=== PATIENT | male | born 1955 | race Caucasian/White ===

== ENCOUNTER 2024-04-06 19:51 | Emergency (ER) | payer BC, SELFPAY ==
--- NOTE | 2024-04-06 19:55 | XR_ITS ---
Examination: CT abdomen and pelvis without contrast. Coronal 3-D reconstructions. Sagittal 2-D reconstructions. Date and time of exam:April 06, 2024 2136 hrs. Comparison September 15, 2016 Indications: Blood in the nephrostomy tube noticed beginning 3 hours ago CTDI: vol (mGy): 10.41 DLP: (mGycm): 703 Technique: Axial images of the abdomen have been obtained, 3 mm slice thickness Intravenous contrast material has not been administered. Low dose protocols were performed. One or more of the following dose reduction techniques were used; automated exposure control, adjustment of the mA and/or KV according to patient size, use of iterative reconstruction technique. Findings: Atelectasis versus pneumonia right base Minimal right pleural fluid No visualized liver or splenic lesion, liver is irregular in contour Right nephrostomy tube satisfactory position, mild right hydronephrosis The lower portion of the ureteral stent extends to the lower pelvis with 6 mm calculus adjacent to the distal portion of the stent Urinary bladder is not identified No bowel obstruction No diverticulitis Impression: Nephrostomy tube is in satisfactory position There is blood in the right renal calyces and ureter with mild right hydronephrosis
--- NOTE | 2024-04-06 19:58 | EDNOTE_ITS ---
ED General RME/HPI General Chief complaint: General Adult/Misc Complain Stated complaint: NEPHROSTOMY TUBE ISSUES Time Seen by Provider: 04/06/24 19:52 Arrival date/time: 04/06/24 19:51 CC: Blood in nephrostomy tube bag and blood around nephrostomy tube in the back HPI patient took a tramadol, became nauseated and vomited several times after which the patient noticed there was bleeding from his nephrostomy tube site and there was blood draining into his nephrostomy tube bag. Patient is mildly nauseated but states no longer vomiting. No prior history of similar events. Patient states it was draining clear yellow urine up until approximately 2 hours ago when this occurred. Patient denies fever chills shortness of breath or difficulty breathing. Patient states nephrostomy tube was placed 2 days ago at [facility] in [facility]. Related Data Allergies Allergy/AdvReac Type Severity Reaction Status Date / Time NKA* Allergy Uncoded 09/15/16 11:29 ED Exam Narrative Physical exam: [General: Obese, mild discomfort acute distress Head normocephalic HEENT: Within acceptable limits Neck is supple nontender Chest equal chest rise nontender to palpation Respiratory: Clear to auscultation no wheezes crackles or rubs CV: Rate rhythm is regular no murmurs rubs or clicks Abdomen is distended secondary to body habitus soft nontender no masses positive bowel sounds all 4 quadrants Back: Right lower nephrostomy tube site bloody, but appears intact. No hematoma. No active bleeding. There is bright red blood draining into the Neuroth nephrostomy tube bag. No surrounding ecchymosis not warm to touch no erythema. No CVA tenderness no spinous process tenderness from cervical spine thoracic and lumbar spine Skin: Intact no petechiae rash induration ulceration or crepitus Extremities: Moving all extremity against resistance cap refill less than 2 seconds neurosensory intact Neuro: Awake alert oriented x3 Glascow coma 15 no focal deficits] Course Quality Measures none Orders Category Date Time Status CT abdomen pelvis wo con Stat Exams 04/06/24 19:55 Completed CBC Stat Lab 04/06/24 20:41 Completed CMP [Comprehensive Metabolic Panel] Stat Lab 04/06/24 20:41 Completed Vital Signs Vital signs: Vital Signs Temperature 98.6 F 04/06/24 19:59 Pulse Rate 99 04/06/24 19:59 Respiratory Rate 18 04/06/24 19:59 Blood Pressure 146/79 H 04/06/24 19:59 Pulse Oximetry (%) 99 04/06/24 19:59 Oxygen Delivery Method Room Air 04/06/24 19:59 [facility] Patient data External records reviewed:: [facility] previous records and EMS form Clinical information provided by:: patient and EMS Social determinants that could affect healthcare access:: none Patient has the following chronic illnesses:: Nephrostomy tube history of colitis How is presenting disease/condition affected by chronic disease/condition?: u neffected by Evaluation data The following diagnostics were reviewed and interpreted by me:: lab results and radiology exam(s) Lab and/or radiology exams considered but not ordered:: CBC shows a leukocytosis of 18.9 no anemia thrombocytopenia CMP shows no acute electrolyte imbalances renal impairment transaminitis or T. bili elevation CT shows there is blood in the renal pelvis on the right side but that ureteral stent as well as the nephrostomy tube are satisfactorily in place. Interpretation Summary: There is no acute finding. The patient also admits that he has an appointment with interventional radiologist tomorrow, April 07, for the same and so nephrostomy tube that is no longer draining. I am comfortable discharging this patient home. For close follow-up. Patient is vies if there is worsening of symptoms return the emergency room for reevaluation. Medications Medications considered but not ordered:: None Medication administrations:: None Consultations Consultation(s) initiated? (list below): No Diagnosis Differential Diagnosis ED Complaint MDM: Hematuria, nephrostomy tube obstruction, hydronephrosis, hydroureter Most likely diagnosis given after review of the tests above:: Hydronephrosis, hematuria Admission Indicated Admission indicated?: not indicated Explain why admission is indicated or not indicated:: Stable for follow-up outpatient appointment tomorrow. Admission Request Was there a request for admission?: No Disposition Plan Disposition Plan: Discharge Discharge Attestation Discharge Attestation: The patient and all family members were given an opportunity to ask questions and understood the discharge instructions. Discharge instructions specifically effects, indications for sooner follow up or return to the emergency department, and the expected course of current diagnosis. Patient condition: Stable Medical Decision Making Differential Diagnosis Differential Diagnosis: Hematuria, nephrostomy tube obstruction, hydronephrosis, hydroureter Lab Data 04/06/24 20:41 04/06/24 20:41 Labs: Lab Results 04/06/24 Range/Units 20:41 WBC 18.9 H (3.8-10.6) Thou/mm3 RBC 5.18 (4.50-5.90) Miln/mm3 Hgb 14.2 (13.5-16.0) g/dL Hct 42.8 (41.0-53.0) % MCV 83 (80-100) fL MCH 27.4 (25.0-35.0) pg MCHC 33.2 (31.0-37.0) g/dl RDW Std Deviation 43.2 (35.1-43.9) fL Plt Count 230 (140-440) Thou/mm3 Neut % (Auto) 84 H (37-80) % Lymph % (Auto) 6 L (10-50) % Patrick % (Auto) 8 (0-12) % Eos % (Auto) 1 (0-10) % Baso % (Auto) 0 (0-2.5) % Neut # (Auto) 16.0 H (1.8-7.7) Thou/mm3 Lymph # (Auto) 1.1 (1.0-4.8) Thou/mm3 Patrick # (Auto) 1.5 H (0.0-0.8) Thou/mm3 Eos # (Auto) 0.1 (0.0-0.5) Thou/mm3 Baso # (Auto) 0.1 (0.0-0.2) Thou/mm3 Immature Gran # (Auto) 0.19 H (0.00-0.00) Thou/mm3 Absolute Nucleated RBC 0.00 (0.00-0.00) Thou/mm3 Immature Gran % 1 H (0-0) % Nucleated RBC % 0 (0) /100 WBC Sodium 131 L (136-145) mMol/L Potassium 3.9 (3.4-5.1) mMol/L Chloride 101 (98-107) mMol/L Carbon Dioxide 22.9 (20.0-31.0) mMol/L Anion Gap 7 (7-16) BUN 23 (9-23) mg/dL Creatinine 1.3 (0.6-1.3) mg/dL Estim Creat Clear Calc 69.1 (>60) mL/min eGFR 59 L (60 - ) See Note BUN/Creatinine Ratio 18 (12-20) Ratio Glucose 136 H (74-106) mg/dL Calculated Osmolality 268 L (275-295) Calcium 9.3 (8.3-10.6) mg/dL Corrected Calcium 9.3 (8.5-10.1) mg/dL Total Bilirubin 0.6 (0.3-1.2) mg/dL AST 19 (0-34) U/L ALT 15 (10-49) U/L Alkaline Phosphatase 89 (46-116) U/L Total Protein 7.2 (5.7-8.2) gm/dL Albumin 4.3 (3.4-4.8) gm/dL Globulin 2.9 (2.3-3.5) gm/dL Albumin/Globulin Ratio 1.5 (1.2-2.2) Discharge Plan Plan Patient Disposition: HOME (Self Care) Patient condition on transfer: Stable Prescriptions/Referrals Referrals: Matthew Tejada DO [Primary Care Provider] - In 1 week Problem List Clinical Impression: Hematuria, Obstructed nephrostomy tube Patient/Caregiver Discharge Instructions Other Activity Instructions:: Follow-up tomorrow with interventional radiology radiologist as stated, if there is a worsening of symptoms including severe flank pain fever chills return the emergency room for reevaluation. Education Materials: ED Hematuria Print Language: Italian Stand Alone Forms: Kati Award Info., Work/School Release, Patient Portal Info Letter MD Attestation Attestation The patient was seen by the midlevel practitioner. I, the co-signing physician, was present during the entire ER visit. While I did not physically examine the patient, I was available for consultation as needed.
[2024-04-06 19:59] VITALS: BP 146/79; PULSE 99; RESP 18; TEMP 37; O2SAT 99; BMI 29.5
[2024-04-06 20:17] VITALS: PULSE 87; RESP 20; O2SAT 99
[2024-04-06 21:07] LABS: Basophils # (Auto) 0.1 Thou/mm3 (0.0-0.2); Basophils % (Auto) 0 % (0-2.5); Eosinophils # (Auto) 0.1 Thou/mm3 (0.0-0.5); Eosinophils % (Auto) 1 % (0-10); Hematocrit 42.8 % (41.0-53.0); Hemoglobin 14.2 g/dL (13.5-16.0); Immature Granulocytes % (Auto) 1 % (0-0); Immature Granulocytes Auto 0.19 Thou/mm3 (0.00-0.00); Lymphocytes # (Auto) 1.1 Thou/mm3 (1.0-4.8); Lymphocytes % (Auto) 6 % (10-50); Mean Corpuscular HGB Conc 33.2 g/dl (31.0-37.0); Mean Corpuscular Hemoglobin 27.4 pg (25.0-35.0); Mean Corpuscular Volume 83 fL (80-100); Monocytes # (Auto) 1.5 Thou/mm3 (0.0-0.8); Monocytes % (Auto) 8 % (0-12); Neutrophils % (Auto) 84 % (37-80); Nucleated Red Blood Cell % 0 /100 WBC (0); Platelet Count 230 Thou/mm3 (140-440); RDW Standard Deviation 43.2 fL (35.1-43.9); Red Blood Count 5.18 Miln/mm3 (4.50-5.90); White Blood Count 18.9 Thou/mm3 (3.8-10.6)
[2024-04-06 21:28] LABS: Alanine Aminotransferase 15 U/L (10-49); Albumin, Serum 4.3 gm/dL (3.4-4.8); Albumin/Globulin Ratio 1.5 (1.2-2.2); Alkaline Phosphatase 89 U/L (46-116); Anion Gap 7 (7-16); Aspartate Amino Transferase 19 U/L (0-34); BUN/Creatinine Ratio 18 Ratio (12-20); Bilirubin,Total 0.6 mg/dL (0.3-1.2); Blood Urea Nitrogen 23 mg/dL (9-23); Calcium 9.3 mg/dL (8.3-10.6); Calcium (Corrected) 9.3 mg/dL (8.5-10.1); Carbon Dioxide 22.9 mMol/L (20.0-31.0); Chloride 101 mMol/L (98-107); Creatinine (Component) 1.3 mg/dL (0.6-1.3); Estimated Creatinine Clearance 69.1 mL/min (>60); Globulin 2.9 gm/dL (2.3-3.5); Glucose 136 mg/dL (74-106); Osmolality,Calculated 268 (275-295); Potassium 3.9 mMol/L (3.4-5.1); Sodium 131 mMol/L (136-145); Total Protein 7.2 gm/dL (5.7-8.2); eGFR 59 See Note
== END 2024-04-06 22:51 | disposition home or self-care (01) ==
PROVIDERS: Registered Nurse General Practice; Emergency Provider Emergency Medicine; PCP Urology
DX: T83.092A Other mechanical complication of nephrostomy catheter, initial encounter (principal); R31.9 Hematuria, unspecified; Y83.8 Other surgical procedures as the cause of abnormal reaction of the patient, or of later complication, without mention of misadventure at the time of the procedure
CPT/HCPCS: 36415; 74176; 80053; 85025; 99284

== ENCOUNTER 2025-03-16 07:19 | Emergency (ER) | payer BC, SELFPAY ==
[2025-03-16 07:19] VITALS: BMI 29.5
[2025-03-16 07:28] VITALS: BP 146/88; PULSE 84; RESP 18; TEMP 36.4; O2SAT 98; BMI 29.5
--- NOTE | 2025-03-16 07:39 | PD.EDRME ---
Rapid Medical Screening Exam E Arrival date/time: 03/16/25 07:19 70-year-old male with medical history significant for kidney stone and ureteral stent placement presents to the emergency department today for complaints of a kidney stone/ureteral stone stuck in his urethra Chief Complaint: Abdominal Pain Vital signs: Vital Signs Temperature 97.5 F 03/16/25 07:28 Pulse Rate 84 03/16/25 07:28 Respiratory Rate 18 03/16/25 07:28 Blood Pressure 146/88 H 03/16/25 07:28 Pulse Oximetry (%) 98 03/16/25 07:28 Oxygen Delivery Method Room Air 03/16/25 07:28
--- NOTE | 2025-03-16 07:55 | EKG_ITS ---
[facility] Test Date: 2025-03-16 Pat Name: GALLO NGUYEN Department: Room: - Gender: Male Customer Order Clerk: : 1955 Requested By: Eber Draper Order Number: [id number] Reading MD: Eber Draper Measurements Intervals Elizabeth Rate: 77 P: 61 AL: 202 QRS: -17 QRSD: 72 T: 13 QT: 320 QTc: 364 Interpretive Statements SINUS RHYTHM LOW QRS VOLTAGE IN PRECORDIAL LEADS [QRS DEFLECTION < 1.0 mV IN CHEST LEADS] SEPTAL MYOCARDIAL INFARCTION , PROBABLY OLD [40+ ms Q WAVE IN V1/V2] INFERIOR MYOCARDIAL INFARCTION , PROBABLY OLD [40+ ms Q WAVE AND/OR ST/T ABNORMALITY IN II/aVF] No previous ECG available for comparison /store/S0/[id number]/ecg/[id number].pdf
[2025-03-16 08:10] VITALS: PULSE 76
[2025-03-16] MEDS: ONDANSETRON INJ 2 MG/ML INJ 2 ML 4 MG IVP (08:22)
[2025-03-16] MEDS: SODIUM CHLORIDE 0.9% 1000 ML 1,000 ML 999 ML IV (08:22)
[2025-03-16] MEDS: HYDROmorphone INJ 2 MG/ML VIAL 0.5 MG IVP (08:23)
[2025-03-16] MEDS: LIDOCAINE JELLY 2% (Urojet) 10 ML TUBE TOP (08:23)
[2025-03-16] MEDS: LIDOCAINE HCL 1% 20 ML VIAL 10 ML INFL (08:35)
[2025-03-16 08:46] LABS: Basophils # (Auto) 0.1 Thou/mm3 (0.0-0.2); Basophils % (Auto) 1 % (0-2.5); Eosinophils # (Auto) 0.3 Thou/mm3 (0.0-0.5); Eosinophils % (Auto) 4 % (0-10); Hematocrit 45.4 % (41.0-53.0); Hemoglobin 15.0 g/dL (13.5-16.0); Immature Granulocytes Auto 0.06 Thou/mm3 (0.00-0.00); Lymphocytes # (Auto) 1.4 Thou/mm3 (1.0-4.8); Lymphocytes % (Auto) 19 % (10-50); Mean Corpuscular HGB Conc 33.0 g/dl (31.0-37.0); Mean Corpuscular Hemoglobin 27.3 pg (25.0-35.0); Mean Corpuscular Volume 83 fL (80-100); Monocytes # (Auto) 0.6 Thou/mm3 (0.0-0.8); Monocytes % (Auto) 8 % (0-12); Neutrophils # (Auto) 5.1 Thou/mm3 (1.8-7.7); Neutrophils % (Auto) 68 % (37-80); Nucleated Red Blood Cell # 0.00 Thou/mm3 (0.00-0.00); Nucleated Red Blood Cell % 0 /100 WBC (0); Platelet Count 308 Thou/mm3 (140-440); RDW Standard Deviation 43.5 fL (35.1-43.9); Red Blood Count 5.50 Miln/mm3 (4.50-5.90); White Blood Count 7.5 Thou/mm3 (3.8-10.6)
[2025-03-16 09:05] LABS: Alanine Aminotransferase 23 U/L (10-49); Albumin, Serum 4.5 gm/dL (3.4-4.8); Albumin/Globulin Ratio 1.7 (1.2-2.2); Alkaline Phosphatase 79 U/L (46-116); Anion Gap 9 (7-16); Aspartate Amino Transferase 20 U/L (0-34); BUN/Creatinine Ratio 18 Ratio (12-20); Bilirubin,Total 0.3 mg/dL (0.3-1.2); Blood Urea Nitrogen 21 mg/dL (9-23); Calcium 9.6 mg/dL (8.3-10.6); Calcium (Corrected) 9.6 mg/dL (8.5-10.1); Carbon Dioxide 19.6 mMol/L (20.0-31.0); Chloride 108 mMol/L (98-107); Creatinine (Component) 1.2 mg/dL (0.6-1.3); Estimated Creatinine Clearance 73.8 mL/min (>60); Globulin 2.6 gm/dL (2.3-3.5); Glucose 110 mg/dL (74-106); Osmolality,Calculated 277 (275-295); Potassium 4.3 mMol/L (3.4-5.1); Sodium 137 mMol/L (136-145); Total Protein 7.1 gm/dL (5.7-8.2); eGFR > 60 See Note
[2025-03-16 10:41] VITALS: BP 119/74
--- NOTE | 2025-03-16 10:42 | EDNOTE_ITS ---
ED Male Genitalurinary RME/HPI General Chief complaint: Abdominal Pain Stated complaint: stone in ureter Time Seen by Provider: 03/16/25 07:41 Arrival date/time: 03/16/25 07:19 Limitations: no limitations RME / HPI RME / HPI Narrative: 03/16/25 07:19 70-year-old male with medical history significant for kidney stone and ureteral stent placement presents to the emergency department today for complaints of a kidney stone/ureteral stone stuck in his urethra DR. LORENZO MAIN ED EVALUATION: 70 year old male with history of kidney stones, ureteral stents, and n ephrostomies in the past presents to the ED for evaluation of a kidney stone stuck in urethra. Reports he is able to palpate the stone and unable to remove himself at home. Patient states he is still able to pass some urine. No abdominal pain reported. No other associated symptoms or complaints. Related Data Previous Rx's ?Medication ?Instructions ?Recorded tramadol 50 mg tablet 50 mg PO Q6H PRN pain #20 ta bs 03/16/25 Allergies Allergy/AdvReac Type Severity Reaction Status Date / Time NKA* Allergy Uncoded 09/15/16 11:29 Review of Systems Review of Systems Systems Reviewed: All systems reviewed, normal except as documented Past Medical History Past Medical History CARDIAC: Positive Cardiac Disorders and Hypertension GENITOURINARY: Positive Kidney Stones and Neurogenic Bladder MUSCULOSKELETAL: Positive Fractures OTHER HISTORY: Positive Cancer Surgical History SURGICAL: Positive Ureteral Stent Social History SMOKING STATUS: Never smoker ED Exam General Limitations: Present no limitations General appearance: Present alert and in no apparent distress Head Head exam: Present atraumatic, normocephalic and normal inspection Eye Eye exam: Present normal appearance, PERRL and EOMI ENT ENT exam: Present normal exam, normal oropharynx and mucous membranes moist Neck Neck exam: Present normal inspection, full ROM and trachea midline Chest Chest inspection: Present normal inspection and symmetric chest wall rise Respiratory Respiratory exam: Present normal lung sounds bilaterally Cardiovascular Cardiovascular exam: Present regular rate, normal rhythm and normal heart sounds Abdominal Exam Abdominal exam: Present soft and normal bowel sounds exam: Present other (There is a stone palpated at the distal opening of the urethra ) Extremities Exam Extremities exam: Present normal inspection and full ROM Back Exam Back exam: Present normal inspection and full ROM Neurological Exam Neurological exam: Present alert, oriented X3 and CN II-XII intact Psychiatric Psychiatric exam: Present normal affect and normal mood Skin Skin exam: Present warm, dry, intact and normal color Course Quality Measures none Orders Category Date Time Status Advertising Designer NOW Care 03/16/25 07:55 Completed Continuous Pulse Oximetry NOW Care 03/16/25 07:55 Completed EKG (ED ONLY) *Do not use* NOW Care 03/16/25 07:55 Completed Insert IV NOW Care 03/16/25 07:55 Completed EKG (ED Only) Stat Exams 03/16/25 07:55 Draft CBC Stat Lab 03/16/25 08:20 Completed Comprehensive Metabolic Panel Stat Lab 03/16/25 08:20 Completed Urinalysis, C/S if Indicated Stat Lab 03/16/25 10:39 Completed Urine Culture Stat Lab 03/16/25 10:39 Received HYDROmorphone INJ [Dilaudid Inj] Med 03/16/25 07:58 Discontinued 0.5 mg IVP X1 ONE Lidocaine 1% 20 ml [Xylocaine 1% 20 ML] Med 03/16/25 08:29 Discontinued 10 ml INFL X1 ONE Lidocaine Jelly 2% Urojet [Xylocaine Jelly 2% Urojet] Med 03/16/25 07:58 Discontinued See Dose Instructions TOP X1 ONE Ondansetron Inj [Zofran Inj] Med 03/16/25 07:58 Discontinued 4 mg IVP X1 ONE Sodium Chloride 0.9% 1000 ml [Ns] 1,000 ml Med 03/16/25 07:55 Discontinued IV 999 mls/hr Vital Signs Vital signs: Vital Signs Temperature 97.5 F 03/16/25 07:28 Pulse Rate 84 03/16/25 07:28 Respiratory Rate 18 03/16/25 07:28 Blood Pressure 146/88 H 03/16/25 07:28 Pulse Oximetry (%) 98 03/16/25 07:28 Oxygen Delivery Method Room Air 03/16/25 07:28 Pulse ox is 98% on room air which is adequate. PROCEDURES: Penile Procedure Time Out Performed: Yes Indication: other (kidney stone lodged in urethra ) Procedural Sedation: No Sedation/Analgesia: none Local Anesthesia Used: penile nerve block (with Lidocaine 1% ) Amount of anesthesia used (mL): 10 Patient Tolerated Procedure: well and no complications Complications: none Additional Comments: I used urojet Lidocaine and gave Dilaudid for pain control. I injected lido and gave dilaudid and injected 5cc of Lidocaine to his pudental nerve at the base of penis on each side. Patient tolerated well. Penile nerve block performed to remove the stone that was at the distal opening of the urethra. I was able to break off the tip of the stone. The stone was palpated and irregular, measuring approximately 1cm x 1 cm x 1cm palpable through glans of penis. I took a plastic IV catheter and able to advance beyond the stone and injected saline. The saline came out though stone. There is no room to place a lott catheter. Urogenital - Male MDM Narrative MDM Narrative:: IRuthy am scribing for and in the presence of Dr. Lorenzo. See procedure note for stone removal attempt. Shortly after procedure, the patient was able to urinate 250cc of urine. We discussed plan for the patient to follow up with his urologist Dr. Tejada today and he is in agreement with plan. Patient data External records reviewed:: [facility] previous records Clinical information provided by:: patient Social determinants that could affect healthcare access:: none Patient has the following chronic illnesses:: history of nephrostomy tubes placement 2/2 kidney stones in 2023 How is presenting disease/condition affected by chronic disease/condition?: no chronic disease Evaluation data The following diagnostics were reviewed and interpreted by me:: lab results and EKG tracing(s) ( EKG @ 08:06AM. NSR, rate 77, no STEMI. ) Lab and/or radiology exams considered but not ordered:: None Interpretation Summary: CBC and CMP with no acute findings UA with 22 RBC, 31 WBC. No bacteria, positive leukocyte esterase. Medications / Prescriptions Medications or Prescriptions considered but not ordered:: None Medication administrations:: Medication Administration History Discontinued Medications Hydromorphone HCl (Hydromorphone Inj 2 Mg/Ml Vial) 0.5 mg IVP X1 ONE Stop: 03/16/25 07:59 Last Admin: 03/16/25 08:23 Dose: 0.5 mg Documented By: BY Sodium Chloride (Ns) 1,000 mls @ 999 mls/hr IV .Q1H1M ONE Stop: 03/16/25 08:55 Last Infusion: 03/16/25 09:30 Dose: Infused Documented By: Admin: 03/16/25 08:22 Dose: 999 mls/hr Documented By: BY Lidocaine HCl (Lidocaine Jelly 2% (Urojet) 10 Ml Tube) 0 ml TOP X1 ONE Stop: 03/16/25 07:59 Last Admin: 03/16/25 08:23 Dose: 10 ml Documented By: BY Lidocaine HCl (Lidocaine Hcl 1% 20 Ml Vial) 10 ml INFL X1 ONE Stop: 03/16/25 08:30 Last Admin: 03/16/25 08:35 Dose: 10 ml Documented By: BY Ondansetron HCl (Ondansetron Inj 2 Mg/Ml Inj 2 Ml) 4 mg IVP X1 ONE; Protocol Stop: 03/16/25 07:59 Last Admin: 03/16/25 08:22 Dose: 4 mg Documented By: BY See above Consultations Consultation(s) initiated? (list below): Yes Consultation #1 (Physician, Specialty, Details): I spoke with urologist Dr. Lee. Discussed patients PMHx, HPI, ED course, exam findings, labs, and radiology results. States he is not available today though stated he may be able to consult tomorrow if the patient is admitted with lott catheter. Time: 11:47 Diagnosis Urogenital Male Differential Diagnosis: urinary tract infection, acute retention of urine and other (ureteral stone) Most likely diagnosis given after review of the tests above:: Stone, kidney Penile abnormality Admission Indicated Admission indicated?: not indicated Admission Request Was there a request for admission?: No Disposition Plan Disposition Plan: Discharge Discharge Attestation Discharge Attestation: The patient and all family members were given an opportunity to ask questions and understood the discharge instructions. Discharge instructions specifically effects, indications for sooner follow up or return to the emergency department, and the expected course of current diagnosis. Patient condition: Stable Discharge Plan Plan Patient Disposition: HOME (Self Care) Patient condition on transfer: Stable Prescriptions/Referrals Prescriptions/Med Rec: New tramadol 50 mg tablet 50 mg PO Q6H MDD 4 PRN (Reason: pain) Qty: 20 0RF Referrals: Shin Arellano MD [Primary Care Provider, Nephrology] - In 1 week Problem List Clinical Impression: Stone, kidney, Penile abnormality Patient/Caregiver Discharge Instructions Discharge Activity: activity as tolerated Education Materials: Understanding Kidney Stones, Preventing Kidney Stones Additional Instructions: Follow-up with your urologist as soon as possible. Return to the emergency department if your pain worsens or you have other concerns. Print Language: Georgian Stand Alone Forms: Kati Award Info., Patient Portal Info Letter
[2025-03-16 10:49] LABS: Collection Type, Urine Clean Catch
[2025-03-16 10:56] LABS: Bilirubin,Urine Negative (Negative); Blood,Urine 3+ (Negative); Budding Yeast,Urine Present; Color,Urine Lt-Yellow (Lt Yel-Yel); Glucose, Urine Negative (Negative); Hyaline Casts,Urine < 1 /hpf (0-1); Ketones,Urine Negative (Negative); Leukocyte Esterase,Urine Positive (Negative); Nitrite,Urine Negative (Negative); PH,Urine 7.0 (5.0-7.0); Protein,Urine Trace (Neg - Trace); RBC,Urine 22 /hpf (0-3); Specific Gravity,Urine 1.009 (1.001-1.035); Squamous Epithelial Cell,Urine < 1 /hpf (0-5); Urobilinogen,Urine Negative mg/dL (0.0-1.0); WBC,Urine 31 /hpf (0-5)
[2025-03-16 10:57] LABS: Clarity,Urine Hazy (Clear/Hazy); Culture Indicated,Urine Yes
== END 2025-03-16 12:25 | disposition home or self-care (01) ==
PROVIDERS: Emergency Provider Family Medicine; PCP Internal Medicine
DX: N20.2 Calculus of kidney with calculus of ureter (principal)
CPT/HCPCS: 36415; 80053; 81001; 85025; 87086; 93005; 96361; 96374; 96375; 99284; J1171; J2405; J3490; J7030